=== PATIENT | female | born 1960 | race Caucasian/White ===

== ENCOUNTER → 2017-07-11 | Outpatient (CLI) | payer MEDICARE, BC | END | disposition home or self-care (01) | LOC: RAD.S 07-10 09:41 | DX: Z12.31 Encounter for screening mammogram for malignant neoplasm of breast (principal); M81.0 Age-related osteoporosis without current pathological fracture; M85.88 Other specified disorders of bone density and structure, other site; S62.109A Fracture of unspecified carpal bone, unspecified wrist, initial encounter for closed fracture; Z78.0 Asymptomatic menopausal state ==